=== PATIENT | female | born 1965 | race Caucasian/White ===

== ENCOUNTER → 2020-10-10 | Outpatient (CLI) | payer OTHER ==
[~2020-10-10] MED LIST: ASPIRIN EC81 MG PO; BRILINTA 90 MG90 MG PO; CRESTOR 10 MG T10 MG PO; LOPRESSOR 25 MG25 MG PO; PLAVIX 75 MG TA75 MG PO; SYNTHROID100 MCG PO
== END ==
LOC: MAMO 13:25
DX: Z12.31 Encounter for screening mammogram for malignant neoplasm of breast (principal); R92.1 Mammographic calcification found on diagnostic imaging of breast
CPT/HCPCS: 77063; 77067

== ENCOUNTER → 2020-11-24 | Outpatient (CLI) | payer OTHER | LOC: MAMO 13:43 | DX: R92.8 Other abnormal and inconclusive findings on diagnostic imaging of breast (principal) | CPT/HCPCS: 76641-LT; 77065; G0279 ==

== ENCOUNTER 2021-01-14 17:29 | Emergency (ER) | payer OTHER | END 2021-01-14 19:10 | disposition home or self-care (01) | LOC: ER1 17:29 | DX: R10.11 Right upper quadrant pain (principal); R11.2 Nausea with vomiting, unspecified; I25.10 Atherosclerotic heart disease of native coronary artery without angina pectoris; E78.5 Hyperlipidemia, unspecified; I10 Essential (primary) hypertension | CPT/HCPCS: 99283 ==

== ENCOUNTER → 2021-09-24 | Outpatient (CLI) | payer OTHER | LOC: HEART 5 10:58 | DX: Z01.810 Encounter for preprocedural cardiovascular examination (principal); I25.10 Atherosclerotic heart disease of native coronary artery without angina pectoris | CPT/HCPCS: 93306 ==

== ENCOUNTER 2021-12-24 17:50 | Inpatient (IN) | payer OTHER ==
[~2021-12-24] VITALS: Ht 170.2 cm; Wt 63.6 kg
[2021-12-24 18:31] LABS: HEMOGLOBIN 12.3 gm/dl (12.3-15.3); RED BLOOD COUNT 4.07 M/UL (4.00-5.10); WHITE BLOOD COUNT 4.6 K/UL (4.5-11.0)
[2021-12-25 04:29] LABS: WHITE BLOOD COUNT 4.8 K/UL (4.5-11.0)
[2021-12-25 04:33] LABS: RED BLOOD COUNT 3.63 M/UL (4.00-5.10)
[2021-12-25] MEDS ORDERED: OMEPRAZOLE40 MG PO (10:25)
[2021-12-25] MEDS ORDERED: LEVOTHYROXINE88 MCG PO (10:25)
[2021-12-25] MEDS ORDERED: METOPROLOL SUCC25 MG PO (10:25)
[2021-12-25] MEDS ORDERED: VITAMIN D21250 MCG PO (10:26)
[2021-12-25] MEDS ORDERED: MULTIPLE VITAM1 EAC1 PO (10:26)
[2021-12-25] MEDS ORDERED: MEGA BIOTIN10000 MCG PO (10:26)
[2021-12-25] MEDS ORDERED: COLLAGEN PO (10:27)
[2021-12-26 01:51] LABS: HEMOGLOBIN 11.4 gm/dl (12.3-15.3); RED BLOOD COUNT 3.73 M/UL (4.00-5.10); WHITE BLOOD COUNT 4.6 K/UL (4.5-11.0)
[2021-12-26 12:12] LABS: HBSAG SCREEN Negative (Negative); HCV AB 0.1 (0.0-0.9); HEP A AB, IGM Negative (Negative); HEP B CORE AB, IGM Negative (Negative)
[2021-12-27 06:03] LABS: HEMOGLOBIN 11.9 gm/dl (12.3-15.3); RED BLOOD COUNT 3.93 M/UL (4.00-5.10); WHITE BLOOD COUNT 3.9 K/UL (4.5-11.0)
[2021-12-28 04:33] LABS: HEMOGLOBIN 11.3 gm/dl (12.3-15.3); RED BLOOD COUNT 3.71 M/UL (4.00-5.10)
[2021-12-28 04:38] LABS: WHITE BLOOD COUNT 8.9 K/UL (4.5-11.0)
[2021-12-28] MEDS ORDERED: COLACE100 MG PO (11:29)
[2021-12-28] MEDS ORDERED: HYDROCODON-ACE1 EAC2 PO (11:29)
== END 2021-12-28 19:30 | disposition home or self-care (01) | DRG 419 ==
LOC: ER1 17:50 → CDU 21:50 → PROG CARE 12-25 12:01 → MED SURG 4 12-26 14:09
PROVIDERS: Emergency Medicine; Internal Medicine; Surgery; ADMIT Internal Medicine
PROC: 0FT44ZZ Resection of Gallbladder, Percutaneous Endoscopic Approach (ICD-10-PCS; principal; 2021-12-27 07:30)
DX: K80.20 Calculus of gallbladder without cholecystitis without obstruction (principal); R74.01 Elevation of levels of liver transaminase levels; Z20.822 Contact with and (suspected) exposure to COVID-19; I25.10 Atherosclerotic heart disease of native coronary artery without angina pectoris; I10 Essential (primary) hypertension; E66.9 Obesity, unspecified; D64.9 Anemia, unspecified; E03.9 Hypothyroidism, unspecified; R73.9 Hyperglycemia, unspecified; D72.819 Decreased white blood cell count, unspecified; Z98.84 Bariatric surgery status; I25.2 Old myocardial infarction; Z79.82 Long term (current) use of aspirin; Z85.3 Personal history of malignant neoplasm of breast; Z90.13 Acquired absence of bilateral breasts and nipples; Z95.5 Presence of coronary angioplasty implant and graft; Z98.51 Tubal ligation status; Z98.890 Other specified postprocedural states; Z80.9 Family history of malignant neoplasm, unspecified; Z68.21 Body mass index [BMI] 21.0-21.9, adult
CPT/HCPCS: 36415; 71045; 74181; 76705; 80053; 80074; 81001; 82248; 83690; 83735; 85025; 85027; 96372; 96374; 96375; 99285; G0378; J0690; J1100; J1650; J1885; J2001; J2250; J2270; J2405; J2704; J3010; J7030; J7120; Q9967; U0002